=== PATIENT | male | born 1995 | race Caucasian/White ===

== ENCOUNTER 2022-10-24 18:06 | Emergency (ER) | payer BC, SELFPAY ==
[2022-10-24 18:09] VITALS: BP 147/99; PULSE 120; RESP 22; TEMP 36.6; O2SAT 98; BMI 19.1
--- NOTE | 2022-10-24 18:25 | EKG12_ITS ---
Test Reason : DYSRHYTHMIA Blood Pressure : / mmHG Vent. Rate : 108 BPM Atrial Rate : 108 BPM P-R Int : 158 ms QRS Dur : 082 ms QT Int : 334 ms P-R-T Axes : 080 078 052 degrees QTc Int : 447 ms Sinus tachycardia Otherwise normal ECG Confirmed by ROLY MACK, CORINNA ([id number]), food editor ANGELITA SHELL ([id number]) on 10/26/2022 9:31:23 AM Referred By: ADELFO Confirmed By:CORINNA DUNHAM MD
--- NOTE | 2022-10-24 18:26 | EX.ED.DYSGE1 ---
HPI History of Present Illness Chief Complaint: ETOH Intox Detail of Chief Complaint: Consumption of a half a gallon of vodka for the past 10 years Informant: patient Onset/Context/Timing Onset: - (10 years) Timing: Continuous Quality: Patient's last drink was 45 minutes prior to presentation Location: Not applicable Current Severity: Severe Maximum Severity: Severe Worsened by: Nothing specific Relieved by: Nothing Associated Symptoms Associated Symptoms: Vomiting daily, admits to marijuana use daily Narrative Narrative: Patient is a 27-year-old male who presents with his father asking for alcohol detox. He drinks 1/2 gallon of vodka per day. His last drink was 45 minutes ago. He starts in the morning otherwise he has withdrawal symptoms. He presently denies headache, visual, ocular auditory symptoms. He does report palpitations. No shortness of breath. He denies black or maroon-colored stool. He states his emesis is clear in color or yellowish-green in color. He has not noted any coffee grounds in his emesis. He denies bruising easily. He denies blood in his urine. [place] bleeding of his gums. Prior similar symptoms: No Recent Illness/Hospitalization: No PFSH PFSH Allergy/AdvReac Type Severity Reaction Status Date / Time No Known Allergies Allergy Verified 10/24/22 18:08 Surgical History no surgical history no surgical history Social History (Updated 10/24/22 @ 18:[address] Ry Etienne MD) Smoking Status: Current every day smoker tobacco type: cigarettes alcohol intake: current substance use type: marijuana ROS ROS ED Constitutional Constitutional ED: Reports sweats; Denies chills, fever(s), subjective or weight loss Eyes Eyes: Denies blurry vision, change in vision or diplopia ENT ENT ED: Denies ear pain, rhinorrhea or sore throat Cardiovascular Cardiovascular: Reports palpitations and racing heartbeat; Denies chest pain Respiratory/Chest Respiratory/Chest: Denies cough, dyspnea or dyspnea on exertion Gastrointestinal Gastrointestinal: Reports nausea and vomiting; Denies abdominal pain or diarrhea Genitourinary Genitourinary ED: Denies dysuria, hematuria or urinary frequency Musculoskeletal Musculoskeletal: Denies arthralgias, back pain, myalgias or neck pain Integumentary Denies abscess or rash Neurologic Neurologic: Denies headache(s), paresthesias or weakness Psychiatric Psychiatric: Reports anxiety Endocrine Endocrinology: Denies cold intolerance or heat intolerance Hematologic/Lymphatic Hematologic/Lymphatic: Reports systems reviewed and no addt'l complaints, except as documented EXAM Physical Exam Const Vital Signs: 10/24/22 18:09 Temperature 98 F Temperature Source Temporal Pulse Rate 120 H Respiratory Rate 22 H Blood Pressure 147/99 H Blood Pressure Mean 115 Pulse Ox 98 Oxygen Delivery Method Room Air Positive well nourished and well developed Constitutional Narrative: Medically patient appears intoxicated. General Appearance ED: well developed and NAD; Negative for cyanotic, diaphoretic or pallor HEENT Reports moist mucous membranes HEENT Narrative: Head is atraumatic normocephalic. Ears normal. TMs normal. Posterior pharynx is normal. Eyes PERRL and EOMs intact bilaterally Eyes Narrative: There is no nystagmu with central gaze. He does have nystagmus with lateral gaze bilaterally. General Eye ED: Negative for pale conjunctiva or scleral icterus Neck no lymphadenopathy, supple and no JVD Chest Wall inspection of chest normal and palpation of chest normal Resp normal respiratory effort Cardio regular rhythm, S1 normal heart sound and no murmurs Rate: tachycardic GI normal to inspection, nondistended, normoactive bowel sounds and no masses; Negative for non-tender, non-distended or hepatosplenomegaly GI Narrative: Abdomen slightly distended and tympanitic. Bowel sounds are diminished. Back/Spine no CVA tenderness Extremity normal to inspection General Extremety ED: Negative for edema or tenderness General Extremity: Negative for edema Neuro oriented x3, CN's II-XII intact bilaterally and no sensory deficits noted Sensorium / Orientation: alert Skin no rashes or lesions noted, no wounds and skin turgor normal General Skin Exam: Negative for jaundice or pallor MDM MDM MDM Narrative Medical decision making narrative: Appropriate blood work for addiction medicine was entered. Hospitalist was present seen patient. Patient be a full admit to [facility]. Rhythm Strip Rhythm Strip: Sinus Tach Rate: 118 Management Discussion w/another healthcare provider: Hospitalist Discharge Plan Triage Chief Complaint: ETOH Intox ED Provider: Ry Etienne Dx/Rx/DC Orders Clinical Impression: Alcohol abuse with physiological dependence, Sinus tachycardia Disposition Disposition: Acute Care [facility]
[2022-10-24] MEDS: Ondansetron 4 MG/2 ML Vial IV (18:45)
--- NOTE | 2022-10-24 18:47 | PCM.HP.STD ---
HPI - General General Date of Admission: 10/24/22 Date of Service: 10/24/22 Chief Complaint: EtOH abuse, withdrawal. HPI Narrative The patient is a 27 y/o M w/ PMHx: Hypertension, Tobacco use, Chronic cannabis usage, IBS, Anxiety and Depression, EtOH abuse (~ 10 years, now up to ~ 1/2 gallon daily, last intake ~ 1 hour prior to ED arrival with less intake on day of presentation than his usual baseline) who presents to the [facility] on 10/24/22 w/ noted onset of withdrawal symptoms with mild tremors, anxiety, mild agitation. Patient interested in attaining sober status. He does note taking his medications for anxiety and depression but no active therapy. He works and reports drinking routinely at work. Father present and patient notes he has a strong support symptoms. His family reports willingness to forgo alcohol to assist in his recovery. Work-up in the ED included T98, heart rate 120, BP 147/99, respiratory rate 22, 98% on room air, EKG with sinus tachycardia with no acute evidence of ischemia, pending CBC, CMP, UDS and ethyl alcohol level upon requested evaluation of patient. The ED patient ministered Zofran 4 mg IV x1. [facility] Medical History (Updated 10/24/22 @ 19:[address] Ivanna Ludwig MD) Alcoholism Anxiety and depression Cannabis use disorder GERD (gastroesophageal reflux disease) HTN (hypertension) Home Medications bupropion HCl 150 mg tablet,12 hr sustained-release 150 mg PO BID 10/24/22 [History Last Taken 10/24/22] dicyclomine 20 mg tablet 20 mg PO .COMPLEX 10/24/22 [History Last Taken 10/24/22] famotidine 40 mg tablet 40 mg PO DAILY 10/24/22 [History Last Taken 10/24/22] sertraline 100 mg tablet 100 mg PO DAILY 10/24/22 [History Last Taken 10/24/22] Allergy/AdvReac Type Severity Reaction Status Date / Time No Known Allergies Allergy Verified 10/24/22 18:08 Family History (Updated 10/24/22 @ 18:[address] Ivanna Ludwig MD) Mother Thyroid disorder Cancer of thyroid Anxiety and depression Father Hypertension Surgical History (Updated 10/24/22 @ 18:[address] Ivanna Ludwig MD) History of surgery on lower extremity Status post ear surgery Surgical History no surgical history Social History (Updated 10/24/22 @ 18:[address] Ivanna Ludwig MD) household members: family Smoking Status: Current every day smoker tobacco type: cigarettes Smoking packs per day: 0.75 Smoking cigarettes per day: 15.0 alcohol intake: current alcohol intake frequency: 3 or more drinks per day details: ~ 1/2 gallon vodka daily. substance use type: marijuana and other details: Cannabis primarily smoked and ingested. ROS ROS Narrative Admission Review of Systems: CONSTITUTIONAL: No weight loss, fever, chills, + weakness or fatigue. HEENT: Eyes: No visual loss, blurred vision, double vision or yellow sclerae. Ears, Nose, Throat: No hearing loss, sneezing, congestion, runny nose or sore throat. SKIN: No rash or itching, lesions, wounds. CARDIOVASCULAR: No chest pain, chest pressure or chest discomfort, palpitations, edema, orthopnea, syncopal events. RESPIRATORY: No shortness of breath, cough or sputum, wheezing, hemoptysis. GASTROINTESTINAL: + anorexia, nausea, occasional vomiting, abdominal discomfort. No or diarrhea, melena, BRBPR. GENITOURINARY: No dysuria, frequency, urgency or retention. NEUROLOGICAL: No headache, dizziness, syncope, paralysis, ataxia, numbness or tingling in the extremities, focal weakness, change in bowel or bladder control, seizure. MUSCULOSKELETAL: + muscle, back pain, joint pain or stiffness. HEMATOLOGIC: No anemia, bleeding or bruising. LYMPHATICS: No enlarged nodes. No history of splenectomy. PSYCHIATRIC: + history of depression or anxiety. ENDOCRINOLOGIC: + reports of sweating, cold or heat intolerance. No polyuria or polydipsia. ALLERGIES: No history of asthma, hives, eczema or rhinitis. Vital Signs Vital Signs Vital Signs: 10/24/22 18:09 Temperature 98 F Temperature Source Temporal Pulse Rate 120 H Respiratory Rate 22 H Blood Pressure 147/99 H Blood Pressure Mean 115 Pulse Ox 98 Oxygen Delivery Method Room Air Weight Weight: 152 lb 12.485 oz Body Mass Index (BMI) 19.1 Physical Exam Narrative Physical Examination: General: Awake, alert, oriented x 3 and cooperative, seated upright in the ED bed, fatigued, mildly restless, flushed, tachycardic Skin: Flushed color, normal turgor, no icterus, no cyanosis. HEENT: AT/NC, EOMI, PERRLA, moderately dry MM, no carotid bruits or JVD noted. Lungs: Mildly diminished, greater bases, proper effort, no rales, ronchi or wheezing. Heart: Tachycardic with regular rhythm; no gallop, rub audible. Abdomen: Soft, mild generalized discomfort with palpation however more notable right upper quadrant with no specific rebound or guarding, no marked distention but mildly tympanitic with IBS history, mildly hyperactive BS, mildly appreciated HM. Extremities: No cyanosis, clubbing, or edema. Neurological: Patient awake, alert, oriented as noted, cognitive function intact; pupils equally reactive to light and accommodation, cranial nerves II-XII grossly normal, moving all 4 extremities, no focal deficits, strength moderately globally decreased secondary to acute presentation, mildly tremulous, mild reported tactile disturbances. Psychiatric: Affect appears restless, anxious, underlying anxiety and depression. Results Rhythm Strip Rhythm Strip: Sinus Tach Rate: 118 Assessment & Plan Assessment/Plan (1) Alcohol withdrawal: PLAN: Plan The patient is a 27 y/o M w/ PMHx: Hypertension, Tobacco use, Chronic cannabis usage, IBS, Anxiety and Depression, EtOH abuse (~ 10 years, now up to ~ 1/2 gallon daily, last intake ~ 1 hour prior to ED arrival with less intake on day of presentation than his usual baseline) who presents to the [facility] on 10/24/22 w/ noted onset of withdrawal symptoms with mild tremors, anxiety, mild agitation. #1. Acute EtOH Withdrawal with suspected Chronic Alcoholic Hepatitis, possibly acute but pending labs upon presentation: Will admit to [place], routine labs obtained in the ED upon presentation and pending upon requested evaluation of patient. Given interest in sobriety, will initiate and continue on protocol with taper course of Phenobarbital, as needed gabapentin, Catapres, Bentyl, Vistaril, IV fluids, IV antiemetics, Tylenol as needed for pain. Will consult Case management for assistance for transition to next level of rehabilitation care. Mag, phos pending. Maintain on CIWA protocol concurrently. #2. Hypertension, uncontrolled, not on regimen: BP upon initial ED presentation elevated above goal, potentially acutely related with acute alcohol withdrawal presentation as noted #1; however, we will continue to closely monitor and add regimen if appropriate, denies currently being on any regimen, as needed IV hydralazine in interim. #3. IBS with chronic nausea and occasional emesis: Patient with chronic bowel issues on Bentyl chronic regimen, will continue and from discussion reportedly has more issues with dairy but declined lactose-free diet at this time. Will have as needed antiemetic and again encourage patient to avoid chronic cannabis usage especially given his heavy usage history. #4. Chronic cannabis usage: From discussion suspect high cannabis usage primarily smoked and ingested, UDS pending, did frankly discuss that heavy cannabis usage can result in frequent nausea and occasional emesis which patient reports he has frequently but attributes this to his IBS. #5. Anxiety and Depression: Will continue home zoloft and buproprion regimen. #6. Tobacco Abuse: Encouraged cessation, inpatient consultation per RT, NR if desired. #7. GERD: We will maintain on PPI given symptom history in case contributing, usually on famotidine only pre med rec review, PRN mylanta. #8. DVT prophylaxis: Low risk for this type of admission, encourage ambulation. Charges/Coding Visit Charges Inpatient E&M: 77706 Init Hosp L2
[2022-10-24 18:52] VITALS: BP 132/78; PULSE 78; RESP 16; TEMP 36.2; O2SAT 98
[2022-10-24 18:53] LABS: Absolute Lymphocyte Count 1.59 X10^3/uL (0.83-4.51); Absolute Neutrophil Count 3.3 X10^3/uL (2.0-7.7); Basophil# 0.09 X10^3/uL; Basophil% 1.6 % (0-1); Eosinophil# 0.37 X10^3/uL; Eosinophils% 6.4 % (0-5); Hematocrit 45.4 % (40-54); Lymphocyte # 1.59 X10^3/ul (0.83-4.51); Lymphocyte % 27.5 % (19-41); Mean Corpuscular Hgb 29.5 pg (27.0-32.0); Mean Corpuscular Volume 89.2 fL (80-94); Mean Platelet Vol. 9.5 fl (6.2-12.0); Monocyte# 0.44 X10^3/uL; Monocyte% 7.6 % (0-10); NRBC Flagged by Analyzer 0 % (0-5); Neutrophil # 3.28 X10^3/uL (2.7-7.7); Neutrophil % 56.7 % (47-70); Platelet Count 272 K/mm3 (150-450); RBC Distribution Width CV 14.3 % (11.6-14.6); Red Blood Count 5.09 M/mm3 (4.6-6.2); White Blood Count 5.8 K/mm3 (4.4-11.0)
[2022-10-24 19:10] LABS: ALB/GLOB Ratio 1.1 RATIO (0.9-2.4); AST(SGOT) 70 U/L (15-37); Alanine Aminotransfer ALT/SGPT 60 U/L (16-61); Albumin, Serum 3.9 g/dL (3.2-5.0); Alkaline Phosphatase 102 U/L (45-117); Anion Gap 7 (5-15); BUN 8 mg/dL (7-18); BUN/Creat Ratio 8.2 RATIO (10-20); Calcium,Total 8.8 mg/dL (8.5-10.1); Chloride 101 mmol/L (98-107); Creatinine, Serum 0.97 mg/dL (0.70-1.30); EST Glomerular Filtration Rate 97 mL/min (>60); Est Glom Filt Rate - Afr Amer 117 mL/min (>60); Estimated Creatinine Clearance 110.14 ml/min; Globulin 3.7 g/dL (2.2-4.2); Glucose 154 mg/dL (74-106); Potassium 3.3 mmol/L (3.5-5.1); Protein, Total 7.6 g/dL (6.4-8.2); Sodium Level 135 mmol/L (136-145)
[2022-10-24 19:39] LABS: Phosphorus 3.8 mg/dL (2.5-4.9)
[2022-10-24 20:07] LABS: Amphetamine Urine VISTA NEGATIVE (<1000 ng/mL); Barbiturate Urine VISTA NEGATIVE (< 200 ng/mL); Benzodiazepine Urine VISTA NEGATIVE (< 200 ng/mL); Cocaine Urine VISTA NEGATIVE (< 300 ng/mL); Ecstacy Urine VISTA NEGATIVE (< 500 ng/mL); Methadone Urine VISTA NEGATIVE (< 300 ng/mL); PCP Urine VISTA NEGATIVE (< 25 ng/mL); THC Urine VISTA POSITIVE (< 50 ng/mL); Vista UDS pH Range 6
--- NOTE | 2022-10-24 20:09 | ED.RN ---
WHEN ADMISSION NURSE ATTEMPTED TO TAKE PT UPSTAIRS, PT REPORTS HE DID NOT UNDERSTAND CONTRACT WHEN HE SIGNED IT BECAUSE HE WAS INTOXICATED. HE STATES SHE TOLD ME TO READ IT BUT I DIDN'T READ IT I WAS DRUNK. HE VOICES HE DID NOT KNOW HE WAS UNABLE TO HAVE HIS PHONE OR VISITORS OR HE WOULD NOT HAVE SIGNED IT. HE STATES HE WANTED TO GO HOME TO GET THINGS IN ORDER SINCE HE WAS NOT GOING TO BE ABLE TO HAVE VISITORS OR HIS PHONE, [place] WOULD BE BACK IN THE MORNING. DR. PUENTE MADE AWARE OF SAME. PT AMBULATED OUT OF DEPARTMENT WITH FAMILY MEMBER DIOR WITHOUT DIFFICULTY.
== END 2022-10-24 20:15 | disposition home or self-care (01) ==
LOC: ED 18:51
PROVIDERS: Family Medicine; Emergency Provider Emergency Medicine; PCP Internal Medicine; Visit Provider Emergency Medicine
DX: F10.239 Alcohol dependence with withdrawal, unspecified (principal); K58.9 Irritable bowel syndrome, unspecified; F32.A Depression, unspecified; F17.210 Nicotine dependence, cigarettes, uncomplicated; I10 Essential (primary) hypertension; F41.9 Anxiety disorder, unspecified; K21.9 Gastro-esophageal reflux disease without esophagitis; Z79.899 Other long term (current) drug therapy
CPT/HCPCS: 80053; 80307; 82077; 83735; 84100; 85025; 93005; 96374; 99285; A4216; J2405

== ENCOUNTER 2022-10-25 12:27 | Inpatient (IN) | payer BC, SELFPAY ==
[2022-10-25] VITALS (7 sets, daily range): BP systolic 115–161; BP diastolic 69–103; PULSE 82–142; RESP 16–18; TEMP 36.3–37.1; O2SAT 94–99; BMI 19.3; BMI 19.2
--- NOTE | 2022-10-25 12:56 | EKG12_ITS ---
Test Reason : PLACEMENT Blood Pressure : / mmHG Vent. Rate : 116 BPM Atrial Rate : 116 BPM P-R Int : 156 ms QRS Dur : 076 ms QT Int : 318 ms P-R-T Axes : 086 083 069 degrees QTc Int : 442 ms Sinus tachycardia Otherwise normal ECG Confirmed by ROLY MACK, CORINAN ([id number]), news copy editor ANJELICA COATS ([id number]) on 10/26/2022 2:23:26 PM Referred By: Confirmed By:CORINNA DUNHAM MD
--- NOTE | 2022-10-25 13:03 | PCM.HP.STD ---
HPI - General General Date of Admission: 10/25/22 Date of Service: 10/25/22 Chief Complaint: Acute alcohol withdrawal syndrome HPI Narrative HAYLEY MCCAULEY, is a 27 M with history of chronic alcohol use disorder came to ER for get help of medical stabilization. First he came last night and H&P was done but he signed AMA from ER. He told me that he he could not keep his cell phone as a protocol on the ramp he got anxious and signed AMA. He came in the morning and he understands that he cannot have cell phone and visitors and he agreed to admit. In ED, patient's father and mother are present and patient and his parents affirmed understanding. Patient has history of anxiety and depression and he drinks alcohol since age of 11. Initially used to drink after the school time daily and then it become more persistent and frequent. He drinks half gallon vodka daily. He also started showing tobacco from 11 to 19 years of his age and then switched to his smoking cigarette about pack per day. He also smokes marijuana. He denies other substance use including opioids, crack cocaine, methamphetamine, ecstasy and bath salt. Patient has history of hypertension from teenage but is not adherent to medication as medications make him more nervous. Currently patient is anxious restless but denies hallucinations or delusion. He denies homicidal ideation. He denies any suicidal attempt but had suicidal ideation in the past. He knows that suicidal attempt is bad and does not want to do it. [facility] Medical History Alcoholism Anxiety and depression Cannabis use disorder GERD (gastroesophageal reflux disease) HTN (hypertension) Home Medications bupropion HCl 150 mg tablet,12 hr sustained-release 150 mg PO BID DEPRESSION 10/24/22 [History Last Taken 10/24/22] dicyclomine 20 mg tablet 20 mg PO 4X/DAY BOWELS 10/24/22 [History Last Taken 10/24/22] famotidine 40 mg tablet 40 mg PO DAILY ACID REFLUX 10/24/22 [History Last Taken 10/24/22] sertraline 100 mg tablet 100 mg PO DAILY DEPRESSION 10/24/22 [History Last Taken 10/24/22] Allergy/AdvReac Type Severity Reaction Status Date / Time No Known Allergies Allergy Verified 10/25/22 12:30 Family History Mother Thyroid disorder Cancer of thyroid Anxiety and depression Father Hypertension Surgical History History of surgery on lower extremity Status post ear surgery Social History household members: family Smoking Status: Current every day smoker tobacco type: cigarettes alcohol intake: current alcohol intake frequency: 3 or more drinks per day details: ~ 1/2 gallon vodka daily. substance use type: marijuana and other details: Cannabis primarily smoked and ingested. ROS ROS Narrative Constitutional: Reports fatigue and weakness. No fever. Poor appetite. Anorexia. HEENT: Reports systems reviewed and no addt'l complaints, except as documented Respiratory/Chest: No acute shortness of breath or respiratory distress or wheezing. CVS: Denies chest pain or shortness of breath. Has tachycardia. Gastrointestinal: Has history of rectal bleeding, bright red and sometimes darker stool for the beginning of this year. He had colonoscopy for 5 months ago and was negative. He admitted few weeks ago vomiting blood. Currently no abdominal pain vomiting blood. Genitourinary: Denies burning urination or new urinary tract symptoms Musculoskeletal: Denies acute joint pain or limited range of motion. No acute injury Neurologic: Denies seizure-like symptoms. skin: No ulcer. No rash Endocrinology: Reports systems reviewed and no addt'l complaints, except as documented Hematologic/Lymphatic: Reports systems reviewed and no addt'l complaints, except as documented Rest 14 ROS are negative except as mentioned in HPI Vital Signs Vital Signs Vital Signs: 10/25/22 12:30 Temperature 98.2 F Temperature Source Temporal Pulse Rate 142 H Respiratory Rate 18 Blood Pressure 140/103 H Blood Pressure Mean 115 Pulse Ox 94 Oxygen Delivery Method Room Air Weight Weight: 154 lb 9.6 oz Body Mass Index (BMI) 19.3 Physical Exam Narrative General: Alert, Oriented x3, Cooperative HEENT: Atraumatic, PERRLA, EOMI, Normocephalic Oral: Oral mucosa dry. No Gingival or Mucosal Lesions/ Ulcerations Neck: Supple, No JVD, Negative Carotid Bruits Lungs: Air entry diminished in bilateral lung bases. No crepitation/rhonchi Cardiovascular: Regular rate, Regular Rhythm, Normal S1, Normal S2, No murmurs Abdomen: Mild right upper quadrant tenderness probably alcoholic hepatitis. Bowel Sounds Present, Soft, Non-Distended. Liver not enlarged. Spleen not palpable. : No renal angle tenderness. No suprapubic tenderness. Extremities: No edema, Capillary Refill Less than 3 Seconds Skin: No rashes, No breakdown Musculoskeletal: No Tenderness to Palpation of Joints or Extremities Neurological: Cranial nerves II-XII grossly intact, DTR 2+/4 and Symmetrical, Neuro grossly intact Psych/Mental Status: restless, anxious. No hallucination. Results Lab / Micro Data 10/25/22 13:26 10/25/22 13:26 Assessment & Plan Assessment/Plan (1) Alcohol withdrawal: QUALIFIERS: Complication of substance-induced condition: with delirium Qualified Code(s): F10.931 - Alcohol use, unspecified with withdrawal delirium (2) Sinus tachycardia: PLAN: Plan This 18-year-old gentleman admitted for medical stabilization of acute alcohol withdrawal syndrome. 1. Acute alcohol withdrawal syndrome with delirium with history of chronic alcohol use disorder with dependence and tolerance: Patient is being admitted on MedSurg floor. Patient on phenobarbital based order set along with other adjunctive medications as needed for alcohol withdrawal symptom control. CIWA monitor. manager pharmacy consulted. Patient was consulted to quit drinking alcohol, discussed in front of his parents. 2. Acute on chronic alcoholic hepatitis, and recent history of GI bleed in 2022: Patient had outside colonoscopy recently this year and was negative for acute abnormality as per parents. He also vomited blood few weeks ago. PPI, pantoprazole 40 mg twice daily. Outpatient follow-up in GI clinic. RUQ sonogram ordered 3. Sinus tachycardia and hypertension: Patient has history of hypertension for long time but not related to medication. Twelve-lead EKG done which shows sinus tachycardia at 116 bpm QTc 492 ms. Ativan 1 mg IV was given. Patient not on antihypertensive medication. Started on clonidine 0.2 mg twice daily. 4. Anxiety and depression: Patient on sertraline and bupropion SR at home. Sertraline continued. Bupropion contraindicated in acute alcohol withdrawal. DVT prophylaxis low risk. Early ambulation encouraged. Full code. Charges/Coding Visit Charges Inpatient E&M: 57259 Init Hosp L3
--- NOTE | 2022-10-25 13:15 | EDS_ITS ---
HPI History of Present Illness Chief Complaint: ETOH Intox Informant: patient and family Narrative Narrative: Presents here with father stepmother for alcohol dependence and assistance. 10- year alcohol history up to half gallon of vodka daily. Withdrawal symptoms are vomiting and improves when he drinks. No tremors no withdrawal seizures in the past. Tobacco and THC history. He saw a for the first time on Monday. They recommended this program. He was here yesterday in the ED, there is plan for admission he was seen by hospitalist service, however he found out they would not allow him personal possessions on his phone. Therefore he left before he went upstairs. He made his phone calls and prepped things at home and he returns ready to be admitted. No diagnosed cirrhosis history. Denies any current nausea or vomiting. He would like a nicotine patch. States has not had detox in the past. Prior similar symptoms: Yes [facility] Medical History (Updated 10/25/22 @ 14:25 by Chanel Stone) Alcohol abuse Alcoholism Anxiety Anxiety and depression Cannabis use disorder GERD (gastroesophageal reflux disease) HTN (hypertension) Mitral prolapse Smoker Substance abuse Home Medications bupropion HCl 150 mg tablet,12 hr sustained-release 150 mg PO BID DEPRESSION 10/24/22 [History Last Taken 10/24/22] dicyclomine 20 mg tablet 20 mg PO 4X/DAY BOWELS 10/24/22 [History Last Taken 10/24/22] famotidine 40 mg tablet 40 mg PO DAILY ACID REFLUX 10/24/22 [History Last Taken 10/24/22] sertraline 100 mg tablet 100 mg PO DAILY DEPRESSION 10/24/22 [History Last Taken 10/24/22] Allergy/AdvReac Type Severity Reaction Status Date / Time Penicillins Allergy Mild Rash Verified 10/25/22 14:45 Family History Mother Thyroid disorder Cancer of thyroid Anxiety and depression Father Hypertension Surgical History History of surgery on lower extremity Status post ear surgery Social History household members: family Smoking Status: Current every day smoker tobacco type: cigarettes alcohol intake: current alcohol intake frequency: 3 or more drinks per day details: ~ 1/2 gallon vodka daily. substance use type: marijuana and other details: Cannabis primarily smoked and ingested. ROS ROS ED Constitutional Constitutional ED: Denies chills, fever(s) or sweats Eyes Eyes: Denies change in vision ENT ENT ED: Denies dysphagia or sore throat Cardiovascular Cardiovascular: Denies chest pain, leg edema, palpitations or racing heartbeat Respiratory/Chest Respiratory/Chest: Denies cough, dyspnea or dyspnea on exertion Gastrointestinal Gastrointestinal: Denies abdominal pain, diarrhea, nausea or vomiting Genitourinary Genitourinary ED: Denies dysuria, hematuria or urinary frequency Musculoskeletal Musculoskeletal: Denies back pain, extremity pain or neck pain Integumentary Denies rash or wounds Neurologic Neurologic: Denies headache(s), paresthesias or weakness Psychiatric Psychiatric: Reports anxiety EXAM Physical Exam Const Vital Signs: 10/25/22 12:30 Temperature 98.2 F Temperature Source Temporal Pulse Rate 142 H Respiratory Rate 18 Blood Pressure 140/103 H Blood Pressure Mean 115 Pulse Ox 94 Oxygen Delivery Method Room Air Positive well nourished and well developed General Appearance ED: well developed and NAD HEENT Reports moist mucous membranes normocephalic and atraumatic Eyes PERRL, EOMs intact bilaterally and conjunctivae normal General Eye ED: Yes normal appearance of both eyes Neck no lymphadenopathy and supple General: Negative for tenderness Chest Wall Chest: Negative for tenderness Resp normal respiratory effort and normal air movement Effort and Inspection: symmetric chest movement; Negative for respiratory distress Cardio regular rhythm and no murmurs Rate: tachycardic Peripheral Pulses: pulses 2+ throughout GI normal to inspection, nondistended, normoactive bowel sounds and non-tender Palpation: Negative for guarding or rebound tenderness present Back/Spine no CVA tenderness and no thoracic nor lumbar tenderness Extremity normal to inspection General Extremety ED: Negative for edema or tenderness General Extremity: Negative for edema Neuro oriented x3 and no sensory deficits noted Sensorium / Orientation: awake and alert Skin no rashes or lesions noted and no wounds MDM MDM MDM Narrative Medical decision making narrative: Interventions / MDM: Differential diagnosis: Although dependence, alcohol withdrawal Diagnosis considered but do not suspect: N/A My EKG interpretation: Sinus rate of 116, no ST or T wave changes. Imaging independently reviewed and interpreted by myself: N/A External documents reviewed: N/A Test considered but not ordered:N/A ED course: Patient tachycardic on arrival sinus in the 120s on my evaluation. EKG at 116. Was given fluids recheck laboratory studies obtained. Nicotine patch ordered. I discussed with hospitalist Dr. Jackson for admission. Will order Ativan 1 mg IV due to his tachycardia. He will add more if needed. He is admitted to medical floor on telemetry due to tachycardia. Labs are pending. Re-evaluation: stable Disposition discussed with patient/family/significant other: Case discussed with consulting clinician: Hospitalist This note was generated with [employer] dictation software. It may contain incorrect words, spelling, and punctuation that were not noted in checking the note before signing. Discharge Plan Dx/Rx/DC Orders Clinical Impression: Alcohol withdrawal, Alcohol abuse with physiological dependence, Sinus tachycardia, Marijuana dependence Disposition Disposition: Acute Care Hospital [facility] Discharge Date/Time: 10/25/22 14:00
[2022-10-25] MEDS: LORazepam 2 MG/ML Syringe 1 MG IV (13:30)
[2022-10-25 14:02] LABS: Absolute Lymphocyte Count 1.47 X10^3/uL (0.83-4.51); Absolute Neutrophil Count 2.9 X10^3/uL (2.0-7.7); Basophil% 1.9 % (0-1); Eosinophil# 0.26 X10^3/uL; Hematocrit 45.9 % (40-54); Lymphocyte # 1.47 X10^3/ul (0.83-4.51); Lymphocyte % 28.4 % (19-41); Mean Corp Hgb Conc 32.7 g/dL (32-36); Mean Corpuscular Hgb 29.5 pg (27.0-32.0); Mean Corpuscular Volume 90.4 fL (80-94); Mean Platelet Vol. 9.8 fl (6.2-12.0); Monocyte# 0.46 X10^3/uL; Monocyte% 8.9 % (0-10); NRBC Flagged by Analyzer 0 % (0-5); Neutrophil # 2.88 X10^3/uL (2.7-7.7); Neutrophil % 55.6 % (47-70); Platelet Count 271 K/mm3 (150-450); RBC Distribution Width CV 14.4 % (11.6-14.6); RBC Distribution Width SD 47.9 fl (35.1-43.9); Red Blood Count 5.08 M/mm3 (4.6-6.2); White Blood Count 5.2 K/mm3 (4.4-11.0)
[2022-10-25 14:12] LABS: International Normalized Ratio 0.9; Prothrombin Time (Protime)PT. 11.9 SECONDS (11.7-14.9)
[2022-10-25 14:17] LABS: AST(SGOT) 65 U/L (15-37); Alanine Aminotransfer ALT/SGPT 59 U/L (16-61); Albumin, Serum 3.9 g/dL (3.2-5.0); Alkaline Phosphatase 108 U/L (45-117); Anion Gap 9 (5-15); BUN 8 mg/dL (7-18); BUN/Creat Ratio 9.1 RATIO (10-20); Chloride 104 mmol/L (98-107); Creatinine, Serum 0.88 mg/dL (0.70-1.30); EST Glomerular Filtration Rate 109 mL/min (>60); Est Glom Filt Rate - Afr Amer 131 mL/min (>60); Estimated Creatinine Clearance 122.85 ml/min; Globulin 3.8 g/dL (2.2-4.2); Glucose 94 mg/dL (74-106); Potassium 3.7 mmol/L (3.5-5.1); Protein, Total 7.7 g/dL (6.4-8.2); Sodium Level 138 mmol/L (136-145)
[2022-10-25 14:23] LABS: Amphetamine Urine VISTA NEGATIVE (<1000 ng/mL); Barbiturate Urine VISTA NEGATIVE (< 200 ng/mL); Benzodiazepine Urine VISTA NEGATIVE (< 200 ng/mL); Cocaine Urine VISTA NEGATIVE (< 300 ng/mL); Ecstacy Urine VISTA NEGATIVE (< 500 ng/mL); Methadone Urine VISTA NEGATIVE (< 300 ng/mL); PCP Urine VISTA NEGATIVE (< 25 ng/mL); THC Urine VISTA POSITIVE (< 50 ng/mL); Vista UDS pH Range 6
[2022-10-25] MEDS: Lactated Ringers 1,000 ML 125 ML IV (15:08)
[2022-10-25] MEDS: Phenobarbital 32.4 MG Tablet 64.8 MG PO ×3 (15:08→21:30)
[2022-10-25] MEDS: Ondansetron 8 MG Tablet PO (15:08)
[2022-10-25] MEDS: hydrOXYzine PAM 25 MG Capsule 50 MG PO (15:08)
[2022-10-25] MEDS: 0.9% Saline Lock 10 ML Syringe IV (15:08)
[2022-10-25] MEDS: Dicyclomine 10 MG Capsule 20 MG PO (15:08)
[2022-10-25] MEDS: cloNIDine HCl 0.2 MG Tablet PO ×2 (15:19→21:30)
[2022-10-25] MEDS: Gabapentin 300 MG Capsule PO (21:30)
[2022-10-25] MEDS: Nicotine Polacrilex 2 MG GUM PO (21:36)
[2022-10-26 02:12] VITALS: BP 153/105; PULSE 68; RESP 16; TEMP 36.6; O2SAT 100
[2022-10-26] MEDS: hydrOXYzine PAM 25 MG Capsule 50 MG PO ×5 (02:25→21:53)
[2022-10-26] MEDS: Phenobarbital 32.4 MG Tablet 64.8 MG PO ×6 (02:25→20:44)
[2022-10-26] MEDS: Ondansetron 8 MG Tablet PO ×3 (02:25→21:53)
[2022-10-26 05:37] VITALS: BP 148/100; PULSE 63; RESP 18; TEMP 36.6; O2SAT 100
[2022-10-26] MEDS: Nicotine Polacrilex 2 MG GUM PO ×5 (05:41→21:53)
[2022-10-26 09:16] VITALS: BP 146/110; PULSE 71; RESP 18; TEMP 36.6; O2SAT 99
[2022-10-26] MEDS: Dicyclomine 10 MG Capsule 20 MG PO ×2 (09:19→16:49)
[2022-10-26] MEDS: Thiamine Hydrochloride 100 MG Tablet PO (09:19)
[2022-10-26] MEDS: Folic Acid 1 MG Tablet PO (09:20)
[2022-10-26] MEDS: Sertraline 100 MG Tablet PO (09:21)
[2022-10-26] MEDS: cloNIDine HCl 0.2 MG Tablet PO ×2 (09:21→21:53)
[2022-10-26] MEDS: Gabapentin 300 MG Capsule PO ×2 (10:30→18:40)
--- NOTE | 2022-10-26 11:28 | ADDICTION ---
This copywriter met with PT to conduct ASAM, MSE, AUDIT assessments and to plan for d/c. PT A+Ox4 and participated actively. All assessments completed and placed in PT's chart. PT plans to f[facility]u [facility] follow[facility]up outpatient treatment services. PT did not indicate a need for transportation post d/c from [facility].
[2022-10-26 12:46] VITALS: BP 153/106; PULSE 69; RESP 16; TEMP 36.6; O2SAT 99
--- NOTE | 2022-10-26 14:06 | PN.HOSP_ITS ---
Reason for Visit Reason for Visit: Diagnoses Alcohol use, unspecified with withdrawal delirium (10/25/22) Tachycardia, unspecified (10/25/22) Subjective Subjective Follow-up for acute alcohol withdrawal syndrome. Patient does not feel much improvement in regards to anxiety. In the morning today he was feeling a strong urge for alcohol drink. Objective Data Objective Data Vital Signs: Vital Signs Temp Pulse Resp BP Pulse Ox O2 Del Method 97.8 F 69 16 153/106 H 99 Room Air 10/26/22 12:46 10/26/22 12:46 10/26/22 12:46 10/26/22 12:46 10/26/22 12:46 10/26/22 12:46 Oxygen Delivery Method Room Air Weight: 154 lb 1.65 oz Body Mass Index (BMI) 19.2 Intake & Output: Intake and Output for Last 24 Hours 10/24/22 10/25/22 10/26/22 23:59 23:59 23:59 Intake Total 700 / 700 1250 / 1250 Balance 700 / 700 1250 / 1250 Medical Nutrition Assessment Dietitian: Malnutrition Criteria Met Start: 10/25/22 16:22 Freq: Status: Active Protocol: Document 10/26/22 07:57 RMA (Rec: 10/26/22 07:57 RMA [id number]) Nutrition Malnutrition Evidence of Malnutrition Exists Yes Malnutrition (severe): Chronic,Social/Behavioral/ Environmental Evidenced By Suboptimal Energy Intake ( Severe),Weight Loss (Severe), Physical Changes (Moderate) Clinical Problem Chronic Disease or Condition Related Malnutrition Etiology Severe protein-calorie malnutrition in the context of chronic disease/social circumstance related to ETOH/ substance abuse and inadequate oral intake Signs/Symptoms as evidenced by ~15% weight loss x 6-12 months, BMI 19.3, PO meeting less than 50% estimated nutrition needs x past 3-6 months and moderate muscle wasting/fat loss in the face, clavicle, arms and legs Status Active Problem Recommendation Dietitian Recommendations/Changes Continue liberalized regular diet and encourage PO at meals . Will d/c ensure compact w/ meals and offer 240mL ensure plus high protein TID w/ meals instead. Adjust ONS as needed per pt acceptance. Monitor weights as available on follow-up. Lab / Micro Data 10/25/22 13:26 10/25/22 13:26 Labs: Laboratory Results - last 24 hr 10/25/22 13:26: PT 11.9, INR 0.9, Sodium 138, Potassium 3.7, Chloride 104, Carbon Dioxide 25.0, Anion Gap 9, BUN 8, Creatinine 0.88, Estim Creat Clear Calc 122.85, Est GFR (MDRD) Af Amer 131, Est GFR (MDRD) Non-Af 109, BUN/Creatinine Ratio 9.1 L, Glucose 94, Calcium 9.0, Total Bilirubin 0.20, AST 65 H, ALT 59, Alkaline Phosphatase 108, Total Protein 7.7, Albumin 3.9, Globulin 3.8, Albumin/Globulin Ratio 1.0, Ethyl Alcohol 256.0 10/25/22 13:47: Urine Opiates Screen NEGATIVE, Urine Methadone Screen NEGATIVE, Ur Barbiturates Screen NEGATIVE, Ur Phencyclidine Scrn NEGATIVE, Ur Amphetamines Screen NEGATIVE, MDMA (Ecstasy) Screen NEGATIVE, U Benzodiazepines Scrn NEGATIVE, Urine Cocaine Screen NEGATIVE, U Cannabinoids Screen POSITIVE H, Ur Drug Screen Comment Physical Exam Narrative General: Alert, Oriented x3, Cooperative HEENT: Atraumatic, PERRLA, EOMI, Normocephalic Oral: Oral mucosa dry. No Gingival or Mucosal Lesions/ Ulcerations Neck: Supple, No JVD, Negative Carotid Bruits Lungs: Air entry diminished in bilateral lung bases. No crepitation/rhonchi Cardiovascular: Regular rate, Regular Rhythm, Normal S1, Normal S2, No murmurs Abdomen: Mild right upper quadrant tenderness probably alcoholic hepatitis. Bowel Sounds Present, Soft, Non-Distended. Liver not enlarged. Spleen not palpable. : No renal angle tenderness. No suprapubic tenderness. Extremities: No edema, Capillary Refill Less than 3 Seconds Skin: No rashes, No breakdown Musculoskeletal: No Tenderness to Palpation of Joints or Extremities Neurological: Cranial nerves II-XII grossly intact, DTR 2+/4 and Symmetrical, Neuro grossly intact Psych/Mental Status: restless, anxious. No hallucination. No delusion Assessment & Plan Assessment/Plan (1) Alcohol withdrawal: QUALIFIERS: Complication of substance-induced condition: with del irium Qualified Code(s): F10.931 - Alcohol use, unspecified with withdrawal delirium (2) Sinus tachycardia: PLAN: Plan This 18-year-old gentleman admitted for medical stabilization of acute alcohol withdrawal syndrome. 1. Acute alcohol withdrawal syndrome with delirium with history of chronic alcohol use disorder with dependence and tolerance: Patient is being admitted on MedSurg floor. Patient on phenobarbital based order set along with other adjunctive medications as needed for alcohol withdrawal symptom control. CIWA monitor. software development project manager consulted. Patient was consulted to quit drinking alcohol, discussed in front of his parents. 10/26: CIWA score 4. Continue phenobarbital as per protocol. 2. Acute on chronic alcoholic hepatitis, and recent history of GI bleed in 2022: Patient had outside colonoscopy recently this year and was negative for acute abnormality as per parents. He also vomited blood few weeks ago. PPI, pantoprazole 40 mg twice daily. Outpatient follow-up in GI clinic. 10/26: RUQ sonogram ordered pending. 3. Sinus tachycardia and hypertension: Patient has history of hypertension for long time but not related to medication. Twelve-lead EKG done which shows sinus tachycardia at 116 bpm QTc 492 ms. Ativan 1 mg IV was given. Patient not on antihypertensive medication. Started on clonidine 0.2 mg twice daily. 10/26: Blood pressure better controlled. It fluctuates between 115/69-153/76. 4. Anxiety and depression: Patient on sertraline and bupropion SR at home. Sertraline continued. Bupropion contraindicated in acute alcohol withdrawal. DVT prophylaxis low risk. Early ambulation encouraged. Full code. Charges/Coding Visit Charges Inpatient E&M: 80130 Subs Hosp L2
[2022-10-26 16:47] VITALS: BP 122/78; PULSE 88; RESP 18; TEMP 36.6; O2SAT 99
[2022-10-26] MEDS: LORazepam 2 MG/ML Syringe 1 MG IV (18:58)
[2022-10-26] MEDS: 0.9% Saline Lock 10 ML Syringe IV (18:58)
[2022-10-26 20:18] VITALS: BP 155/108; PULSE 67; RESP 18; TEMP 36.6; O2SAT 100
[2022-10-26] MEDS: LORazepam 1 MG Tablet 2 MG PO (21:53)
[2022-10-27 05:28] VITALS: BP 137/97; PULSE 64; RESP 16; TEMP 36.3; O2SAT 100
[2022-10-27] MEDS: Phenobarbital 32.4 MG Tablet 64.8 MG PO ×5 (05:36→22:02)
[2022-10-27] MEDS: Gabapentin 300 MG Capsule PO ×2 (05:36→17:16)
[2022-10-27] MEDS: Nicotine Polacrilex 2 MG GUM PO ×4 (05:37→22:17)
[2022-10-27 09:23] VITALS: BP 130/94; PULSE 66; RESP 18; TEMP 36.6; O2SAT 100
[2022-10-27] MEDS: Folic Acid 1 MG Tablet PO (09:26)
[2022-10-27] MEDS: Thiamine Hydrochloride 100 MG Tablet PO (09:26)
[2022-10-27] MEDS: Sertraline 100 MG Tablet PO (09:26)
[2022-10-27] MEDS: cloNIDine HCl 0.2 MG Tablet PO ×2 (09:26→22:02)
--- NOTE | 2022-10-27 12:49 | PN.HOSP_ITS ---
Reason for Visit Reason for Visit: Diagnoses Alcohol use, unspecified with withdrawal delirium (10/25/22) Tachycardia, unspecified (10/25/22) Objective Data Objective Data Vital Signs: Vital Signs Temp Pulse Resp BP Pulse Ox O2 Del Method 97.8 F 66 18 130/94 H 100 Room Air 10/27/22 09:23 10/27/22 09:23 10/27/22 09:23 10/27/22 09:23 10/27/22 09:23 10/27/22 09:23 Oxygen Delivery Method Room Air Weight: 154 lb 1.65 oz Body Mass Index (BMI) 19.2 Intake & Output: Intake and Output for Last 24 Hours 10/25/22 10/26/22 10/27/22 23:59 23:59 23:59 Intake Total 700 / 700 1250 / 1250 75 / 75 Balance 700 / 700 1250 / 1250 75 / 75 Medical Nutrition Assessment Dietitian: Malnutrition Criteria Met Start: 10/25/22 16:22 Freq: Status: Active Protocol: Document 10/26/22 07:57 RMA (Rec: 10/26/22 07:57 RMA [id number]) Nutrition Malnutrition Evidence of Malnutrition Exists Yes Malnutrition (severe): Chronic,Social/Behavioral/ Environmental Evidenced By Suboptimal Energy Intake ( Severe),Weight Loss (Severe), Physical Changes (Moderate) Clinical Problem Chronic Disease or Condition Related Malnutrition Etiology Severe protein-calorie malnutrition in the context of chronic disease/social circumstance related to ETOH/ substance abuse and inadequate oral intake Signs/Symptoms as evidenced by ~15% weight loss x 6-12 months, BMI 19.3, PO meeting less than 50% estimated nutrition needs x past 3-6 months and moderate muscle wasting/fat loss in the face, clavicle, arms and legs Status Active Problem Recommendation Dietitian Recommendations/Changes Continue liberalized regular diet and encourage PO at meals . Will d/c ensure compact w/ meals and offer 240mL ensure plus high protein TID w/ meals instead. Adjust ONS as needed per pt acceptance. Monitor weights as available on follow-up. Lab / Micro Data 10/25/22 13:26 10/25/22 13:26 Radiography Diagnostic Testing: Radiology Impression Abdomen Ultrasound 10/27/22 14:07 IMPRESSION: Parenchymal liver disease. Electronically Signed: Tevin Hatfield MD at 9:10 EDT , Physical Exam Narrative Seen and examined. Patient was slightly better with more control of agitation and restlessness. Patient was started on IV Ativan as per CIWA protocol yesterday. General: Alert, Oriented x3, Cooperative HEENT: Atraumatic, PERRLA, EOMI, Normocephalic Oral: Oral mucosa dry. No Gingival or Mucosal Lesions/ Ulcerations Neck: Supple, No JVD, Negative Carotid Bruits Lungs: Air entry diminished in bilateral lung bases. No crepitation/rhonchi Cardiovascular: Regular rate, Regular Rhythm, Normal S1, Normal S2, No murmurs Abdomen: Mild right upper quadrant tenderness probably alcoholic hepatitis. Bowel Sounds Present, Soft, Non-Distended. Liver not enlarged. Spleen not palpable. : No renal angle tenderness. No suprapubic tenderness. Extremities: No edema, Capillary Refill Less than 3 Seconds Skin: No rashes, No breakdown Musculoskeletal: No Tenderness to Palpation of Joints or Extremities Neurological: Cranial nerves II-XII grossly intact, DTR 2+/4 and Symmetrical, Neuro grossly intact Psych/Mental Status: Quite. No hallucination. No delusion Assessment & Plan Assessment/Plan (1) Alcohol withdrawal: QUALIFIERS: Complication of substance-induced condition: with delirium Qualified Code(s): F10.931 - Alcohol use, unspecified with withdrawal delirium (2) Sinus tachycardia: PLAN: Plan This 18-year-old gentleman admitted for medical stabilization of acute alcohol withdrawal syndrome. 1. Acute alcohol withdrawal syndrome with delirium with history of chronic alcohol use disorder with dependence and tolerance: Patient is being admitted on MedSurg floor. Patient on phenobarbital based order set along with other adjunctive medications as needed for alcohol withdrawal symptom control. CIWA monitor. human resources communications manager consulted. Patient was consulted to quit drinking alcohol, discussed in front of his parents. 10/26: CIWA score 4. Continue phenobarbital as per protocol. 10/27: CIWA score 7. Patient on phenobarbital schedule as per protocol and At jacques according to CIWA score. Subjectively patient feels better with better control of emotion, agitation and anxiety. 2. Acute on chronic alcoholic hepatitis, and recent history of GI bleed in 3: Patient had outside colonoscopy recently this year and was negative for acute abnormality as per parents. He also vomited blood few weeks ago. PPI, pantoprazole 40 mg twice daily. Outpatient follow-up in GI clinic. 10/26: RUQ sonogram ultrasound reported as increased liver echogenicity cystic diffuse parenchymal liver disease, steatosis. No intrahepatic biliary ductal dilatation. Pancreas unremarkable with no focal abnormality. 3. Sinus tachycardia and hypertension: Patient has history of hypertension for long time but not related to medication. Twelve-lead EKG done which shows sinus tachycardia at 116 bpm QTc 492 ms. Ativan 1 mg IV was given. Patient not on antihypertensive medication. Started on clonidine 0.2 mg twice daily. 10/26: Blood pressure better controlled. It fluctuates between 115/69-153/76. 10/27 and heart rate and blood pressure are controlled in normal range. 4. Anxiety and depression: Patient on sertraline and bupropion SR at home. Sertraline continued. Bupropion contraindicated in acute alcohol withdrawal. DVT prophylaxis low risk. Early ambulation encouraged. Full code. Charges/Coding Visit Charges Inpatient E&M: 19839 Subs Hosp L2
[2022-10-27 13:24] VITALS: BP 132/82; PULSE 69; RESP 18; O2SAT 100
[2022-10-27] MEDS: hydrOXYzine PAM 25 MG Capsule 50 MG PO ×2 (13:26→18:57)
--- NOTE | 2022-10-27 14:07 | US_ITS ---
EXAM: US ABDOMEN LIMITED, RIGHT UPPER QUADRANT CLINICAL INDICATION: alcoholic hepatitis TECHNIQUE: Real-time ultrasound of the right upper quadrant with image documentation. COMPARISON: No relevant prior studies available. FINDINGS: LIVER: Liver echogenicity appears increased suggesting diffuse parenchymal liver disease, likely steatosis. No intrahepatic biliary ductal dilation. GALLBLADDER: Normal. No shadowing gallstone. No gallbladder wall thickening is demonstrated. No pericholecystic fluid. Negative sonographic Orozco''s sign. COMMON BILE DUCT: Unremarkable as visualized. The proximal common bile duct is normal size. PANCREAS: Unremarkable as visualized. No focal abnormality is demonstrated in the pancreas. No pancreatic ductal dilatation. RIGHT KIDNEY: 10 mm right renal cyst. There is no hydronephrosis. No shadowing calculus. US/Abdomen Limited IMPRESSION: Parenchymal liver disease. Electronically Signed: Tevin Hatfield MD at 9:10 EDT ,
[2022-10-27 17:17] VITALS: BP 130/87; PULSE 70; RESP 18; O2SAT 99
[2022-10-27 21:51] VITALS: BP 146/97; PULSE 71; RESP 18; TEMP 36.4; O2SAT 100
[2022-10-27] MEDS: traZODone 100 MG Tablet PO (22:02)
[2022-10-27] MEDS: Ondansetron 8 MG Tablet PO (22:02)
[2022-10-27] MEDS: LORazepam 1 MG Tablet 2 MG PO (22:02)
[2022-10-28 02:00] VITALS: BP 111/78; PULSE 64; RESP 14; TEMP 36.3; O2SAT 100
[2022-10-28] MEDS: Phenobarbital 32.4 MG Tablet 64.8 MG PO ×2 (02:54→09:26)
[2022-10-28] MEDS: cloNIDine HCl 0.2 MG Tablet PO (09:26)
[2022-10-28] MEDS: Nicotine Polacrilex 2 MG GUM PO (09:26)
[2022-10-28] MEDS: Folic Acid 1 MG Tablet PO (09:26)
[2022-10-28] MEDS: Sertraline 100 MG Tablet PO (09:26)
[2022-10-28] MEDS: Thiamine Hydrochloride 100 MG Tablet PO (09:26)
[2022-10-28 09:33] VITALS: BP 113/66; PULSE 74; RESP 17; TEMP 36.6; O2SAT 100
--- NOTE | 2022-10-28 10:25 | PCM.DC ---
Discharge Instructions Diet Discharge Diet: No restrictions Activity Discharge Activity: Return to Normal Activity and May Not Drive Weight Bearing Status: Weight bearing as tolerated Dressing / Incision Call your doctor if you observe: Fever of 101 or Higher, Coldness, Increased Pain, Numbness or Tingling, Change in Color, Inability to urinate, Inability to have a bowel movement, Shortness of breath, Dizziness, Fainting spells, Swelling in the ankles, Chest pain, Prolonged hiccupping, Increased palpitations (irregular heartbeat) and Calf discomfort Follow Up Care When: IN 2 WEEKS Test Results: Test results from this visit will be discussed in further detail at your follow-up appointment, if applicable. Discharge Plan Admission Admit Date/Time: 10/25/22 13:00 Primary Reason for Your Visit: Acute alcohol withdrawal syndrome. Attending Provider: Zaire Jackson Primary Care Provider: Elva Castro NP Instructions Additional Instructions / Restrictions: Follow-up outpatient 180 Discharge Orders/Prescriptions Prescriptions: New thiamine HCl (vitamin B1) [Vitamin B-1] 100 mg Tablet 100 mg PO DAILYCM Qty: 30 2RF nicotine 21 mg/24 hr Patch 24 Hour 21 mg transdermal DAILY 30 Days Qty: 30 0RF folic acid 1 mg Tablet 1 mg PO DAILY@0800 30 Days Qty: 30 2RF pantoprazole [Protonix] 40 mg tablet,delayed release (DR/EC) 40 mg PO DAILY Qty: 30 2RF Continued dicyclomine 20 mg tablet 20 mg PO 4X/DAY sertraline 100 mg tablet 100 mg PO DAILY bupropion HCl 150 mg tablet sustained-release 12 hr 150 mg PO BID Discontinued famotidine 40 mg tablet 40 mg PO DAILY Referrals / Follow Up: Elva Castro NP, [employer] [Primary Care Provider] - Disposition Disposition (needs filled in before D/C Order can be placed): Home, Self Care
--- NOTE | 2022-10-28 13:03 | PCM.DC.SUM ---
Providers Date of Admission: 10/25/22 Date of Discharge: 10/28/22 Primary Care Physician: MARLON Purdy Reason For Visit: acute alcohol withdrawl Diagnosis Discharge Diagnosis (1) Alcohol withdrawal: Status: Acute Code(s): F10.939 - Alcohol use, unspecified with withdrawal, unspecified Qualifiers: Complication of substance-induced condition: with delirium Qualified Code(s): F10.931 - Alcohol use, unspecified with withdrawal delirium (2) Sinus tachycardia: Status: Acute Code(s): R00.0 - Tachycardia, unspecified Plan This 18-year-old gentleman admitted for medical stabilization of acute alcohol withdrawal syndrome. 1. Acute alcohol withdrawal syndrome with delirium with history of chronic alcohol use disorder with dependence and tolerance: Patient is being admitted on [facility] floor. Patient on phenobarbital based order set along with other adjunctive medications as needed for alcohol withdrawal symptom control. CIWA monitor. environmental conflict manager consulted. Patient was consulted to quit drinking alcohol, discussed in front of his parents. 10/26: CIWA score 4. Continue phenobarbital as per protocol. 10/27: CIWA score 7. Patient on phenobarbital schedule as per protocol and Ativan according to CIWA score. Subjectively patient feels better with better control of emotion, agitation and anxiety. 10/28: Patient wants to go home. CIWA score in the morning was 9. Patient is awake, alert oriented x3. Denies suicidal ideation or attempt or aggressive behavior or homicidal ideation. The patient advised to follow-up with outpatient 180. Discussed with the case monitor of 180 is considered okay to discharge with follow-up with outpatient mental health counseling and alcohol rehab program. 2. Acute on chronic alcoholic hepatitis, and recent history of GI bleed in 2022: Patient had outside colonoscopy recently this year and was negative for acute abnormality as per parents. He also vomited blood few weeks ago. PPI, pantoprazole 40 mg twice daily. Outpatient follow-up in GI clinic. 10/26: RUQ sonogram ultrasound reported as increased liver echogenicity cystic diffuse parenchymal liver disease, steatosis. No intrahepatic biliary ductal dilatation. Pancreas unremarkable with no focal abnormality. 10/28: Prescription for Protonix given. Famotidine discontinued. 3. Sinus tachycardia and hypertension: Patient has history of hypertension for long time but not related to medication. Twelve-lead EKG done which shows sinus tachycardia at 116 bpm QTc 492 ms. Ativan 1 mg IV was given. Patient not on antihypertensive medication. Started on clonidine 0.2 mg twice daily. 10/26: Blood pressure better controlled. It fluctuates between 115/69-153/76. 10/27 and heart rate and blood pressure are controlled in normal range. 4. Anxiety and depression: Patient on sertraline and bupropion SR at home. Sertraline continued. Bupropion contraindicated in acute alcohol withdrawal. DVT prophylaxis low risk. Early ambulation encouraged. Full code. Discharge medication reconciliation done. Discharge follow-up instructions completed. Discharge process discussed with the patient and all questions were answered to patient's satisfaction. Total time spent, exact 35 minutes on discharge meds reconciliation, examination, coordination of care with nurses and ancillary staff, review of imaging and blood test and discussion with the patient on follow-up instructions. Medications at Discharge Home Medications bupropion HCl 150 mg tablet,12 hr sustained-release 150 mg PO BID DEPRESSION 10/24/22 dicyclomine 20 mg tablet 20 mg PO 4X/DAY BOWELS 10/24/22 sertraline 100 mg tablet 100 mg PO DAILY DEPRESSION 10/24/22 folic acid 1 mg tablet 1 mg PO DAILY@0800 30 days #30 tabs 10/28/22 nicotine 21 mg/24 hr daily transdermal patch 21 mg transdermal DAILY 30 days #30 ea 10/28/22 pantoprazole 40 mg tablet,delayed release (Protonix) 40 mg PO DAILY #30 tabs 10/28/22 thiamine HCl (vitamin B1) 100 mg tablet (Vitamin B-1) 100 mg PO DAILYCM #30 tabs 10/28/22 Physical Exam Narrative Seen and examined. Patient feels better. No hallucination or delusion. General: Alert, Oriented x3, Cooperative HEENT: Atraumatic, PERRLA, EOMI, Normocephalic Oral: Oral mucosa moist. No Gingival or Mucosal Lesions/ Ulcerations Neck: Supple, No JVD, Negative Carotid Bruits Lungs: Air entry diminished in bilateral lung bases. No crepitation/rhonchi Cardiovascular: Regular rate, Regular Rhythm, Normal S1, Normal S2, No murmurs Abdomen: Mild right upper quadrant tenderness probably alcoholic hepatitis. Bowel Sounds Present, Soft, Non-Distended. Liver not enlarged. Spleen not palpable. : No renal angle tenderness. No suprapubic tenderness. Extremities: No edema, Capillary Refill Less than 3 Seconds Skin: No rashes, No breakdown Musculoskeletal: No Tenderness to Palpation of Joints or Extremities Neurological: Cranial nerves II-XII grossly intact, DTR 2+/4 and Symmetrical, Neuro grossly intact Psych/Mental Status: Quite. No hallucination. No delusion Medical Records Data Medical Nutrition Assessment Dietitian: Malnutrition Criteria Met Start: 10/25/22 16:22 Freq: Status: Active Protocol: Document 10/26/22 07:57 RMA (Rec: 10/26/22 07:57 RMA [id number]) Nutrition Malnutrition Evidence of Malnutrition Exists Yes Malnutrition (severe): Chronic,Social/Behavioral/ Environmental Evidenced By Suboptimal Energy Intake ( Severe),Weight Loss (Severe), Physical Changes (Moderate) Clinical Problem Chronic Disease or Condition Related Malnutrition Etiology Severe protein-calorie malnutrition in the context of chronic disease/social circumstance related to ETOH/ substance abuse and inadequate oral intake Signs/Symptoms as evidenced by ~15% weight loss x 6-12 months, BMI 19.3, PO meeting less than 50% estimated nutrition needs x past 3-6 months and moderate muscle wasting/fat loss in the face, clavicle, arms and legs Status Active Problem Recommendation Dietitian Recommendations/Changes Continue liberalized regular diet and encourage PO at meals . Will d/c ensure compact w/ meals and offer 240mL ensure plus high protein TID w/ meals instead. Adjust ONS as needed per pt acceptance. Monitor weights as available on follow-up. Weight / BMI Weight Weight: 154 lb 1.65 oz Body Mass Index (BMI) 19.2 ABG / Lab / Microbiology Data 10/25/22 13:26 10/25/22 13:26 D/C Instructions Discharge Diet: No restrictions Weight Bearing Status: Weight bearing as tolerated Call your doctor if you observe: Fever of 101 or Higher, Coldness, Increased Pain, Numbness or Tingling, Change in Color, Inability to urinate, Inability to have a bowel movement, Shortness of breath, Dizziness, Fainting spells, Swelling in the ankles, Chest pain, Prolonged hiccupping, Increased palpitations (irregular heartbeat) and Calf discomfort When: IN 2 WEEKS Meaningful Use Info Meaningful Use Diagnoses (Choose all that apply): None applicable Discharge Plan Admission Admit Date/Time: 10/25/22 13:00 Primary Reason for Your Visit: Acute alcohol withdrawal syndrome. Attending Provider: Zaire Jackson Primary Care Provider: Elva Castro NP Instructions Additional Instructions / Restrictions: Follow-up outpatient 180 Discharge Orders/Prescriptions Prescriptions: New thiamine HCl (vitamin B1) [Vitamin B-1] 100 mg Tablet 100 mg PO DAILYCM Qty: 30 2RF nicotine 21 mg/24 hr Patch 24 Hour 21 mg transdermal DAILY 30 Days Qty: 30 0RF folic acid 1 mg Tablet 1 mg PO DAILY@0800 30 Days Qty: 30 2RF pantoprazole [Protonix] 40 mg tablet,delayed release (DR/EC) 40 mg PO DAILY Qty: 30 2RF Continued dicyclomine 20 mg tablet 20 mg PO 4X/DAY sertraline 100 mg tablet 100 mg PO DAILY bupropion HCl 150 mg tablet sustained-release 12 hr 150 mg PO BID Discontinued famotidine 40 mg tablet 40 mg PO DAILY Referrals / Follow Up: Elva Castro NP, [employer] [Primary Care Provider] - Disposition Disposition (needs filled in before D/C Order can be placed): Home, Self Care Charges/Coding Visit Charges Inpatient E&M: 61770 Disch Hosp >30min
[2022-10-28 14:17] VITALS: BP 123/79; PULSE 71; RESP 17; O2SAT 97
== END 2022-10-28 14:16 | disposition home or self-care (01) | DRG 896 ==
LOC: ED 13:19 → MS3 13:21
PROVIDERS: Admitting Provider Internal Medicine; Emergency Provider Emergency Medicine; PCP Internal Medicine; Visit Provider Internal Medicine
DX: F10.231 Alcohol dependence with withdrawal delirium (principal); E43 Unspecified severe protein-calorie malnutrition; Z68.1 Body mass index [BMI] 19.9 or less, adult; K70.10 Alcoholic hepatitis without ascites; F12.20 Cannabis dependence, uncomplicated; I10 Essential (primary) hypertension; F32.A Depression, unspecified; F41.9 Anxiety disorder, unspecified; F17.210 Nicotine dependence, cigarettes, uncomplicated; K21.9 Gastro-esophageal reflux disease without esophagitis; R45.1 Restlessness and agitation; Z79.899 Other long term (current) drug therapy
CPT/HCPCS: 76705; 80053; 80307; 82077; 85025; 85610; 93005; 97802; 99285; 99406; J7040; J7120; A4216